=== PATIENT | male | born 1940 | race Caucasian/White ===

== ENCOUNTER 2016-08-04 10:34 | Emergency (ER) | payer MEDICARE, OTHER ==
[~2016-08-04] VITALS: Ht 177.8 cm; Wt 93.2 kg
[2016-08-04 10:37] VITALS: BP 219/85; PULSE 50; RESP 18; O2SAT 96
--- NOTE | 2016-08-04 10:49 | ED.REPORT ---
HPI-General Illness Date of Service Aug 04, 2016 ED Provider: Amarjit Good DO Patient is a 76 year old male with a history of stent placement who presents to the ED due to high blood pressure. Associated symptoms include lightheadedness, headache and right side facial tingling. He denies dizziness, shortness of breath or chest pain. Patient reports that when he took his blood pressure this morning at 1000 and it was 201/102. He called his primary care physician at [facility] who recommended he come to the ED. Nursing Notes Stated Complaint: BLOOD PRESSURE ISSUES Chief Complaint: General Complaint Nursing Notes Reviewed: Yes Allergies: Coded Allergies: No Known Allergies (Unverified , 08/04/16) Scheduled Amlodipine (Norvasc) 10 Mg Tablet 10 MG PO DAILY General Time Seen by MD: 10:48 Chief Complaint Other (high blood pressure) Hx Obtained From: Patient Sudden in Onset?: Yes Onset Occurred: 1 - 4 hours ago Severity: Current: No pain currently Recent Healthcare: No recent doctor visit, No recent hospitalization Past Medical History Past Medical History stent placement Reports: Hypertension Social History Other Social History: Good social support Ambulatory Status Independent NIH Stroke Scale Level of Consciousness: Alert and responsive (0) Ask Month & Age: Both questions right (0) Open/Close Eyes/Hand Respiratory Practitioner: Performs both tasks (0) Horizontal EO Movements: None (0) Visual Hernández: No visual loss (0) Facial Palsy: Normal symmetry (0) Right Arm Motor Drift (10s): No drift 10 sec (0) Left Arm Motor Drift (10s): No drift 10 sec (0) Right Leg Motor Drift (5s): No drift 5 sec (0) Left Leg Motor Drift (5s): No drift 5 sec (0) Limb Ataxia FNF/Heel-Jasmine: No ataxia (0) Sensation (Arms/Legs/Face): No sensory loss (0) Language Aphasia: No aphasia, normal (0) Dysarthria: No dysarthria, normal (0) Extinction/Inattention: No exctinct/inattent (0) NIHSS Score: 0 Time NIHSS Performed: 10:50 Date NIHSS Performed: Aug 04, 2016 Review of Systems tingling in left side of face Full Review of Systems Constitutional: Denies: Fever Respiratory: Denies: Non-productive cough, Shortness of breath Cardiovascular: Denies: Chest pain Neurologic: Reports: Headache, Lightheaded, Denies: Dizziness, Numbness, Problem walking, Weakness Complete sys rev & neg: except as marked. Physical Exam Vital Signs Vital Signs Date Time Temp Pulse Resp B/P Pulse Ox O2 Delivery O2 Flow Rate FiO2 08/04/16 13:51 46 17 161/76 92 Room Air 08/04/16 13:34 46 16 158/78 96 Room Air 08/04/16 12:12 46 180/81 98 08/04/16 10:37 50 18 219/85 96 Room Air Initial VS: Reviewed General/Constitutional: Well-developed, Well-nourished Head / Eyes: Atraumatic, Normocephalic, PERRL ENT: Mucous membranes moist, Conjunctiva normal, No scleral icterus Neck: Supple, Non-tender, Full range of motion Respiratory: Breath sounds normal, Clear to auscultation, No respiratory distress Cardiovascular: Regular rate & rhythm, Heart sounds normal, Intact distal pulses Abdomen / GI: Soft, Non-tender, No guarding, No rebound, No distention Back: No CVA tenderness Lymphatic: No lymphadenopathy Extremities: Vascular intact, Neuro intact, No swelling, No tenderness Skin: Warm, Dry, No cyanosis Neurologic: Alert, Oriented, Nonfocal Psychiatric: Mood/affect normal, Behavior normal, Normal thought content General/Constitutional: Awake, Alert, No acute distress Head / Eyes: Atraumatic, Normocephalic, PERRL, EOMI Respiratory / Chest: Atraumatic, Breath sounds NL, Breath sounds = bilat, No respiratory distress Upper Extremities Upper Extremity / MS: Atraumatic, Full range of motion strength 5/5 bilaterally Lower Extremity / Pelvis / MS: Atraumatic, Full range of motion strength 5/5 bilaterally Skin: Atraumatic, Color NL, No rash, Warm, Dry Neurologic: Oriented X3, Speech NL, No motor deficits, No sensory deficits, CN II - XII intact Right sided arm and facial numbness reported with palpation. No RLE numbness Psychiatric: Affect NL, Mood NL Interpretation & Diagnostics Lab Results Interpretation Result Diagram: 08/04/16 1125 08/04/16 1125 Test 08/04/16 11:25 White Blood Count 5.6th/mm3 (3.8-10.1) Red Blood Count 4.56mil/mm3 (4.40-5.80) Hemoglobin 14.9g/dL (13.8-17.2) Hematocrit 43.4% (41.0-50.0) Mean Corpuscular Volume 95.2fL (81-100) Mean Corpuscular Hemoglobin 32.7pg (27.0-35.0) Mean Corpuscular Hemoglobin Concent 34.3% (32.0-37.0) Red Cell Distribution Width 12.6% (12.3-15.4) Platelet Count 165bil/L (150-400) Neutrophils (%) (Auto) 61.2% (40-74) Lymphocytes (%) (Auto) 23.9% (14-46) Monocytes (%) (Auto) 8.9% (4-12) Eosinophils (%) (Auto) 5.4% (0-5) Basophils (%) (Auto) 0.4% (0-3) Sodium Level 137mEq/L (134-144) Potassium Level 4.1mEq/L (3.5-5.2) Chloride Level 100mEq/L (97-108) Carbon Dioxide Level 23mmol/L (18-29) Blood Urea Nitrogen 19mg/dL (8-27) Creatinine 0.72mg/dL (0.76-1.27) Estimat Glomerular Filtration Rate 113mL/min (>59) Glucose Level 125mg/dL (60-99) Calcium Level 9.8mg/dL (8.5-10.1) Magnesium Level 2.0mg/dL (1.6-2.6) Total Bilirubin 0.5mg/dL (0.0-1.2) Aspartate Amino Transf (AST/SGOT) 41U/L (0-50) Alanine Aminotransferase (ALT/SGPT) 48U/L (0-44) Alkaline Phosphatase 92U/L (25-160) Troponin T 0.010ug/L (0.0-0.011) Pro-B-Type Natriuretic Peptide 207.1pg/mL (0-486) Total Protein 7.3g/dL (6.4-8.4) Albumin 4.1g/dL (3.4-5.0) Hold Fay Top Tube Received (Received) ECG Interpretation ECG Interpretation: sinus bradycardia, rate 48 left anterior fasicular block LVH with secondary repolarization abnormality no ST changes Time: 11:12 Interpreted by: ED physician X-Ray Chest Interpretation Chest Xray Interpretation: IMPRESSION: No acute pulmonary process. Dictated by: Sienna Contreras M.D. on 08/04/2016 at 10:34 Approved by: Sienna Contreras M.D. on 08/04/2016 at 10:34 View: Portable, 1 view Interpretation / Wet Read by: Interpret - Radiologist CT Head Interpretation IMPRESSION: 1. No acute intracranial process. 2. Mild atrophy and chronic microvascular ischemic changes. 3. Mild meza sinus mucosal thickening. Dictated by: Sienna Contreras M.D. on 08/04/2016 at 11:11 Approved by: Sienna Contreras M.D. on 08/04/2016 at 11:14 Interpretation / Wet Read by: Interpret - Radiologist Re-Eval/Medical Decision Med Decision/Clinical Course 76 y/o male with h/o uncontrolled chronic hypertension presents with R sided face/arm numbness, dizziness, bradycardia, and extremely elevated blood pressure. He is on 2 blood pressure medications and recently had his metoprolol doubled from 50 to 100mg once daily. Pt brings a list of his daily BP and all readings have been above 180 systolic for the past 2 weeks. NIH of 0 and all symptoms resolved with lowering of blood pressure using Norvasc and nitro paste. ACS ruled out. CT head without acute abn. I suspect metoprolol at new dose caused his bradycardia and dizziness and the addition of a different BP med may be helpful. Discussed with PCP who agrees and will see him in f/u next week. All sx resolved prior to d/c, except pt was still bradycardic around 50bpm, however he was able to ambulate without symptoms and felt up to going home. Time of Eval: 12:46 Patient Status: Condition improved Re-Evaluation/Progress Note: Discussed results and plan for discharge. The patient understands and agrees to the plan for discharge. All questions were addressed. Time of Eval: 13:33 Re-Evaluation/Progress Note: Patient tolerated road test. Consultation : Consulted With: Primary care physician Call Returned at: 12:55 Refinisher: Agrees with eval, Agrees with plan Note: Consult with Dr. Boggs, who will see the patient next week for follow up Counseled Regarding: Diagnosis, Lab results, Need for follow-up, When/why to return to ED Discharge & Departure Primary Impression: Hypertensive encephalopathy Additional Impressions: Hypertensive urgency Hypertension Hypertension type: essential hypertension Qualified Code: I10 - Essential ( primary) hypertension Bradycardia Disposition: Home Discharge Condition All VS Reviewed: Yes Condition: Stable Patient Instructions: Bradycardia (ED), Chronic Hypertension (ED) Additional Instructions: Thank you for trusting us with your care. Your labs, x-ray, head CT, and EKG were reassuring. Your blood pressure improved nicely with amlodipine and nitroglycerin paste Take the amlodipine 10 mg once daily and reduce your metoprolol from 100 mg daily to 50 mg daily. Follow up with your primary care physician next week. Please return to the emergency department if you develop any new or worsening symptoms including fever, shortness of breath, chest pain, weakness, numbness or tingling. Referrals: Abdirizak Boggs MD [facility]sa[facility]l Attestation Portions of this note were transcribed by Kristina Michel. I, Dr. Good personally performed the history, physical exam and medical decision-making; I reviewed and confirmed the accuracy of the information in the transcribed note. Signed by: Kristina Erickson, 08/04/16 and 1111 copies to: Abdirizak Boggs MD, Gary R DO Aug 04, 2016 10:48 Pearl Michel Aug 04, 2016 11:00
[2016-08-04] MEDS ORDERED: Nitroglycerin 2% 1 Gm Ointment TOPICAL SCH (11:00)
--- NOTE | 2016-08-04 11:35 | DRSVH ---
PROCEDURE: X-RAY CHEST ONE VIEW, PORTABLE ([id number]) INDICATIONS: chest pain TECHNIQUE: One view of the chest was acquired. COMPARISON: None. FINDINGS: Surgical changes and devices: None. Lungs and pleura: No pleural effusions or pneumothorax. Lungs are clear. Mediastinum: Mediastinal contours appear normal. Heart size is normal. Bones and chest wall: No suspicious bony lesions. Overlying soft tissues appear unremarkable. IMPRESSION: No acute pulmonary process. Dictated by: Sienna Contreras M.D. on 08/04/2016 at 10:34 Approved by: Sienna Contreras M.D. on 08/04/2016 at 10:34
[2016-08-04 11:36] LABS: BASOPHILS % (AUTO) 0.4 % (0-3); EOSINOPHILS % (AUTO) 5.4 % (0-5); MONOCYTES % (AUTO) 8.9 % (4-12); Mean Corpuscular Hemoglobin 32.7 pg (27.0-35.0); Mean Corpuscular Volume 95.2 fL (81-100); NEUTROPHILS % (AUTO) 61.2 % (40-74); Platelet Count 165 bil/L (150-400)
[2016-08-04 12:02] LABS: TROPONIN T 0.01 ug/L (0.0-0.011)
[2016-08-04 12:12] VITALS: BP 180/81; PULSE 46; O2SAT 98
--- NOTE | 2016-08-04 12:15 | DRSVH ---
PROCEDURE: CT BRAIN WITHOUT CONTRAST ([id number]) INDICATIONS: headache, hypertension TECHNIQUE: Noncontrast 4.5 mm thick angled axial sections acquired from the foramen magnum to the vertex, with c oronal reformats. COMPARISON: None. FINDINGS: Image quality: Excellent. CSF spaces: Basal cisterns are patent. No extra-axial fluid collections. The ventricles are symmet eliseo in size and shape. Brain: No intracranial bleeds or masses. There is cerebral volume loss for age, with resultant vent ricular and sulcal prominence. There are periventricular and deep white matter chronic small vessel ischemic changes. There is intracranial internal carotid artery atherosclerosis. Skull and face: Calvarium and visualized facial bones appear intact, without suspicious lesions. Sinuses: Visualized sinuses demonstrate ethmoid, maxillary and frontal sinus mucosal thickening. IMPRESSION: 1. No acute intracranial process. 2. Mild atrophy and chronic microvascular ischemic changes. 3. Mild meza sinus mucosal thickening. Dictated by: Sienna Contreras M.D. on 08/04/2016 at 11:11 Approved by: Sienna Contreras M.D. on 08/04/2016 at 11:14
[2016-08-04] MEDS ORDERED: AMLO10TA5 PO (13:09)
[2016-08-04 13:34] VITALS: BP 158/78; PULSE 46; RESP 16; O2SAT 96
[2016-08-04 13:51] VITALS: BP 161/76; PULSE 46; RESP 17; O2SAT 92
== END 2016-08-04 13:52 | disposition home or self-care (01) ==
LOC: SED 10:34
DX: I67.4 Hypertensive encephalopathy (principal); I16.0 Hypertensive urgency; Z95.5 Presence of coronary angioplasty implant and graft